=== PATIENT | male | born 1955 | race Caucasian/White ===

== ENCOUNTER 2017-05-16 22:57 | Emergency (ER) | payer SELFPAY ==
[2017-05-17] MEDS ORDERED: NACL 0.9% 500 ML IR ONE (00:03)
[2017-05-17 01:48] LABS: Hematocrit 35.7 % (35.5-45.6); Hemoglobin 11.7 gm/dl (11.8-15.2); Mean Corpuscular HGB Conc 33 % (32-34); Mean Corpuscular Hemoglobin 27 pg (28-32); Mean Corpuscular Volume 84 fl (84-94); Platelet Count 238 K/mm3 (140-440); Red Blood Count 4.27 M/mm3 (3.65-5.03); Red Cell Distribution Width 13.7 % (13.2-15.2)
[2017-05-17 01:55] LABS: INR 1.04 (0.87-1.13)
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
[2017-05-17 02:01] LABS: BUN/Creatinine Ratio 16; Blood Urea Nitrogen 11 mg/dL (9-20); Calcium 8.9 mg/dL (8.4-10.2); Hemolysis Index 2
[2017-05-17] MEDS ORDERED: K-DUR PO ONE (02:06)
[2017-05-17 02:59] LABS: Total Cells Counted 100
[2017-05-17 03:00] LABS: Band Neutrophils # (Manual) 1.4 K/mm3; Basophils % (Manual) 0 % (0.0-1.8); Eosinophils % (Manual) 0 % (0.0-4.3); Platelet Estimate Consistent w Auto
[2017-05-17 05:33] VITALS: BP 120/70
== END 2017-05-17 07:56 ==
LOC: ED 22:57
DX: N40.1 Benign prostatic hyperplasia with lower urinary tract symptoms (principal); R33.8 Other retention of urine; R31.0 Gross hematuria; I10 Essential (primary) hypertension; F41.9 Anxiety disorder, unspecified; Z87.891 Personal history of nicotine dependence
CPT/HCPCS: 36415; 51702; 80048; 85007; 85025; 85610; 85730; 86850; 86900; 86901; 99285